=== PATIENT | male | born 2000 | race Caucasian/White ===

== ENCOUNTER 2024-03-22 08:58 | Emergency (ER) | payer OTHER ==
[2024-03-22] MEDS: Doxycycline Monohydrate 100 MG Cap PO ONE (10:05)
[2024-03-22] MEDS: Bacitracin Oint 15 GM Tube TOP ONE (10:06)
== END 2024-03-22 10:15 | disposition home or self-care (01) ==
LOC: JD.ED 08:58
DX: S30.810A Abrasion of lower back and pelvis, initial encounter (principal); Z79.51 Long term (current) use of inhaled steroids; X58.XXXA Exposure to other specified factors, initial encounter
CPT/HCPCS: 99282; A9270; 99283